=== PATIENT | male | born 1965 | race Caucasian/White ===

== ENCOUNTER 2018-07-14 13:34 | Emergency (ER) | payer MEDICAID ==
[~2018-07-14] VITALS: Ht 172.7 cm; Wt 79.4 kg
--- NOTE | 2018-07-14 13:36 | NUR ---
CARL ALEJANDRA ALS TO ER BED 03
[2018-07-14 13:40] VITALS: BP 150/96
--- NOTE | 2018-07-14 13:49 | NUR ---
PT. BIB [facility], PT. C/O FEELING WEAKNESS, HEADACHE, SHOULDER PAIN, AND SEEING SPOTS. PT. DESCRIBES PAIN 10/10, CONSTANT AND SHARP. PT. REPORTS FEELING LIKE HE WAS GOING TO HAVE A SEIZURE, LAST ONE WAS 3 DAYS AGO. PT. REPORTS BEING ADMITTED AT [facility]. PT. 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
[2018-07-14] MEDS ORDERED: KETOROLAC 30 MG/ML VIAL IVP ONE (14:45)
[2018-07-14 15:20] VITALS: BP 144/89
== END 2018-07-14 15:20 | disposition home or self-care (01) ==
LOC: MED 13:34
DX: R56.9 Unspecified convulsions (principal); R42 Dizziness and giddiness; M25.512 Pain in left shoulder; R07.9 Chest pain, unspecified; F17.200 Nicotine dependence, unspecified, uncomplicated
CPT/HCPCS: 81002; 82948; 96374; 99283; J1885